=== PATIENT | female | born 1965 | race African-American/Black ===

== ENCOUNTER 2019-08-24 10:58 | Emergency (ER) | payer OTHER ==
[2019-08-24] MEDS ORDERED: Amoxicillin/Clavulanate TAB* 875 MG PO ONE (13:49)
--- NOTE | 2019-08-24 13:50 | ED ---
Head Injury - HPI Summary HPI Summary: 54-year-old female presents with head injury last night. She states that around 11:00 last night she tripped and lacerating her lip. She has abrasion noted to her nose. States she chipped her teeth. No loss consciousness. no epistaxis. Denies any nausea vomiting. Denies any dizziness. Admits to headache. Denies any photophobia. No change in vision. States her tetanus is up-to-date. Has a history of high blood pressure. - History Of Current Complaint Chief Complaint: EDFacialInjury Stated Complaint: FALL- FACIAL INJURIES/HEAD INJURY PER PT Time Seen by Provider: 08/24/19 13:40 Pain Intensity: 8 - Allergies/Home Medications Allergies/Adverse Reactions: Allergies Allergy/AdvReac Type Severity Reaction Status Date / Time No Known Allergies Allergy Verified 08/24/19 11:04 PMH/Surg Hx/FS Hx/Imm Hx Endocrine/Hematology History: Denies: Hx Diabetes Cardiovascular History: Reports: Hx Hypertension Denies: Hx Pacemaker/ICD History: Denies: Hx Renal Disease Sensory History: Denies: Hx Hearing Aid Psychiatric History: Denies: Hx Panic Disorder - Cancer History Hx Chemotherapy: No Hx Radiation Therapy: No - Surgical History Surgery Procedure, Year, and Place: DENIES Infectious Disease History: No Infectious Disease History: Denies: Traveled Outside the [place] in Last 30 Days - Family History Known Family History: Positive: None - Social History Alcohol Use: Occasionally Substance Use Type: Reports: None Smoking Status (MU): Never Smoked Tobacco Review of Systems Negative: Fever Negative: Chest Pain Negative: Shortness Of Breath Positive: Other - lip lacerations Positive: Headache All Other Systems Reviewed And Are Negative: Yes Physical Exam Triage Information Reviewed: Yes Vital Signs On Initial Exam: Initial Vitals Temp Pulse Resp BP Pulse Ox 98.6 F 100 16 139/88 96 08/24/19 11:00 08/24/19 11:00 08/24/19 11:00 08/24/19 11:00 08/24/19 11:00 Vital Signs Reviewed: Yes Appearance: Positive: Well-Appearing Skin: Positive: Warm, Dry, Other - 2cm by 1cm laceration of lip, not through and through, abrasion on nose and below nose, contusion to forehead Head/Face: Positive: Normal Head/Face Inspection Eyes: Positive: Normal, EOMI, ERMA, Conjunctiva Clear ENT: Positive: Normal ENT inspection, Pharynx normal, TMs normal Dental: Positive: Other - chipped tooth Neck: Positive: Other: - nontender neck Respiratory/Lung Sounds: Positive: Clear to Auscultation, Breath Sounds Present Cardiovascular: Positive: Normal, RRR Musculoskeletal: Positive: Normal Neurological: Positive: Sensory/Motor Intact, Alert, Oriented to Person Place, Time, CN Intact II-III Psychiatric: Positive: Normal - [place] Coma Scale Best Eye Response: 4 - Spontaneous Best Motor Response: 6 - Obeys Commands Best Verbal Response: 5 - Oriented Coma Scale Total: 15 Procedures - Sedation Patient Received Moderate/Deep Sedation with Procedure: No - Laceration/Wound Repair 1 Location: Other - lip laceration Description: Irregular Anesthesia: Local, 1.0% Length, Depth and Shape: 2cm by 1cm Irrigated w/ Saline (ccs): 500 Closure: Single Layer Suture Type: Chromic - 5-0 Number of Sutures: 4 Diagnostics - Vital Signs Vital Signs Temp Pulse Resp BP Pulse Ox 08/24/19 12:53 98.9 F 95 16 153/95 98 08/24/19 11:00 98.6 F 100 16 139/88 96 - Laboratory Lab Statement: Any lab studies that have been ordered have been reviewed, and results considered in the medical decision making process. Head Injury Course/Dx Course Of Treatment: 54-year-old female presents with head injury last night. She states that around 11:00 last night she tripped and lacerating her lip. She has abrasion noted to her nose. States she chipped her teeth. No loss consciousness. no epistaxis. Denies any nausea vomiting. Denies any dizziness. Admits to headache. Denies any photophobia. No change in vision. States her tetanus is up-to-date. Has a history of high blood pressure. On exam has 2cm by 1cm laceration of upper lip that does not cross tito border and is not through and through. Discussed with Dr. Hutchinson who saw patient and said it need suture due to the cosmetic issues even though the length of time that laceration has happened is greater than 12 hours but less than 24 hrs. Cleaned area extensively and placed 4 5-0 chromic sutures. Will give referral to plastics. Will place on Augmentin. Has a normal neuro exam. According to [facility] rules does not need any head imaging. told if develop vomiting to return. told to follow up with primary. Patient understands and agrees with plan. - Diagnoses Differential Diagnosis/HQI/PQRI: Concussion Without LOC, Contusion, Intracranial Bleed, Laceration Provider Diagnoses: Abrasion, Fall, Head injury, Lip laceration, Chipped tooth Discharge ED - Sign-Out/Discharge Documenting (check all that apply): Patient Departure - Discharge Plan Condition: Good Disposition: HOME Prescriptions: Amoxicillin/Clavulanate TAB* [Augmentin TAB 875*] 875 mg PO BID #9 tab Patient Education Materials: Care For Your Absorbable Stitches (ED) Referrals: Saundra Beltran MD [Primary Care Provider] - David Cole MD [Medical Doctor] - Additional Instructions: Place ice on area Take Tylenol for pain as needed every 6 hours Sutures will absorb on own do not need to be removed, can clip the ends in 7 days if still present Avoid acidic foods Rinse mouth out twice a day Take augmentin twice a day for 5 days follow up with plastics follow up with primary within 5 days about head injury follow up with dentist about chipped teeth Return to ED if develop any signs of infection, vomiting, or any new or worsening symptoms - Billing Disposition and Condition Condition: GOOD Disposition: Home - Attestation Statements Provider Attestation: I have seen the patient with the [facility] and agree with the plan and documentation below except as noted: 54-year-old female presents with upper lip laceration approximately 12 hours old. Wound cleansed, place several sutures to help with cosmetic appearance. [place] Hutchinson MD
[2019-08-24] MEDS ORDERED: Lidocaine 1% MPF ** 5 ML VIAL INJ ONE (13:53)
[2019-08-24 15:23] VITALS: BP 131/87
== END 2019-08-24 15:21 | disposition home or self-care (01) ==
LOC: ED 10:58
DX: S09.90XA Unspecified injury of head, initial encounter (principal); S01.511A Laceration without foreign body of lip, initial encounter; S02.5XXA Fracture of tooth (traumatic), initial encounter for closed fracture; W01.0XXA Fall on same level from slipping, tripping and stumbling without subsequent striking against object, initial encounter; Y92.9 Unspecified place or not applicable; I10 Essential (primary) hypertension
CPT/HCPCS: 12011; 99282; A9270-GY